=== PATIENT | male | born 1995 | race African-American/Black ===

== ENCOUNTER 2017-02-18 19:17 | Emergency (ER) | payer SELFPAY ==
[2017-02-18 19:18] VITALS: BP 119/69; PULSE 98; RESP 16; TEMP 99.5; O2SAT 96
[2017-02-18] MEDS ORDERED: CLINDAMYCIN PHOS 600 MG/4 ML VIAL IM ONE (20:15)
[2017-02-18] MEDS ORDERED: IBUPROFEN 800 MG TAB PO ONE (20:15)
[2017-02-18] MEDS ORDERED: ACETAMINOPHEN/CODEINE 300 MG/30 MG TAB PO ONE (20:15)
[2017-02-18] MEDS ORDERED: LIDOCAINE HCL 1% 50 ML VIAL INFIL ONE (20:15)
[2017-02-18] MEDS ORDERED: CLIN1CAP6 PO (20:27)
[2017-02-18] MEDS ORDERED: MAGICADU2 SWISH-SPIT (20:27)
[2017-02-18] MEDS ORDERED: IBUP800T23 PO (20:27)
[2017-02-18] MEDS ORDERED: TYLETAB34 PO (20:27)
--- NOTE | 2017-02-18 20:34 | PD ---
HPI Chief Complaint: Oral / Dental Pain or Problem Time Seen by Provider: 20:26 Travel History International Travel<30 days: No Contact w/Intl Traveler<30days: No Traveled to known affect area: No History of Present Illness HPI 21-year-old male presents for evaluation of dental pain. Symptoms started 1.5 weeks ago. He reports pain localized to the right mandibular first molar. He has had issues with this tooth for quite some time. He reports soft tissue swelling to the right lower gumline over the past few days. Denies drainage. Denies subjective fevers. He has had occasional chills. He is otherwise healthy 21-year-old male with no significant past medical history. He is attempting to get an appointment with a dentist to have the tooth extracted. He has no other complaints at this time. [facility] Past Medical History Medical History: Denies Significant Hx Past Surgical History Surgical History: No Previous Surgery Social History Alcohol Use: No Tobacco Use: No Substance Use: No Allergies-Medications (Allergen,Severity, Reaction): Coded Allergies: No Known Allergies (Verified Allergy, Unknown, 02/18/17) Reported Meds & Prescriptions Reported Meds & Active Scripts Active Magic Mouthwash Adult Liq (Multi-Ingredient Mouthwash/Gargle) 120 Ml Susp 10 Ml SWISH-SPIT ACHS Each 5mL contains: Nystatin 200,000units, Diphenhydramine 4.25mg, Viscous Lidocaine 10mg, Venegas syrup 0.8 mL Ibuprofen 800 Mg Tab 800 Mg PO Q6HR PRN Tylenol-Codeine #3 (Acetaminophen-Codeine) 300-30 mg Tab 1 Tab PO Q4H PRN Clindamycin (Clindamycin HCl) 300 Mg Cap 300 Mg PO TID 10 Days Review of Systems Except as stated in HPI: all other systems reviewed are Neg Physical Exam Narrative GENERAL: Well-developed well-nourished male in no acute distress. SKIN: Warm and dry. HEAD: Atraumatic. Normocephalic. EYES: Pupils equal and round. No scleral icterus. No injection or drainage. ENT: No nasal bleeding or discharge. Mucous membranes pink and moist. The right mandibular first molar is quite decayed. The surrounding gumline is tender and is somewhat fluctuant and pointing, approximately 1.5-2 cm in length. There is no sublingual edema. NECK: Trachea midline. No JVD. There is no lymphadenopathy or submandibular edema. CARDIOVASCULAR: Regular rate and rhythm. No murmur appreciated. RESPIRATORY: No accessory muscle use. Clear to auscultation. Breath sounds equal bilaterally. GASTROINTESTINAL: Abdomen soft, non-tender, nondistended. Hepatic and splenic margins not palpable. MUSCULOSKELETAL: No obvious deformities. No clubbing. No cyanosis. No edema. NEUROLOGICAL: Awake and alert. No obvious cranial nerve deficits. Motor grossly within normal limits. Normal speech. PSYCHIATRIC: Appropriate mood and affect; insight and judgment normal. Data Data Last Documented VS Vital Signs Date Time Temp Pulse Resp B/P (MAP) Pulse Ox O2 Delivery O2 Flow Rate FiO2 02/18/17 19:18 99.5 98 16 119/69 (86) 96 Room Air Orders Orders Lidocaine 1% Inj (50 Ml) (Xylocaine 1% I (02/18/17 20:15) Clindamycin Inj (Cleocin Inj) (02/18/17 20:15) Acetamin-Codeine 300-30 Mg (Tylenol-Code (02/18/17 20:15) Ibuprofen (Motrin) (02/18/17 20:15) MDM Medical Decision Making Medical Screen Exam Complete: Yes Emergency Medical Condition: Yes Medical Record Reviewed: Yes Differential Diagnosis Periodontal abscess, dental caries, pulpitis, pericoronitis Narrative Course 21-year-old male here with dental pain. Examination reveals focal dental decay to the right mandibular first molar. There are some surrounding gumline fluctuance that extends into the cheek itself. It is somewhat small in length and after consent was obtained a needle aspiration was performed to relieve some of the purulent drainage. The patient was given a dose of intramuscular clindamycin as well as oral Tylenol with codeine, ibuprofen. He'll be discharged with prescriptions for clindamycin as well as pain medication. He was given a coupon for the clindamycin. He is encouraged to follow-up with a dentist and return for any acutely new or worsening symptoms. Procedures Procedure Narrative Periodontal abscess needle aspiration: The skin on the right lower cheek wound was cleansed with Betadine. 1% lidocaine was used to anesthetize the area. The area was punctured with an 18-gauge needle. Purulent drainage was expressed. He tolerated procedure well. Diagnosis Primary Impression: Dental caries Additional Impression: Periodontal abscess Additional Instructions: Medication as prescribed. Do not drive or drink alcohol when taking Tylenol with Codeine. Follow up with a dentist for definitive therapy. Return for any acutely new or worsening symptoms. Med/Other Pt SpecificInfo: Prescription(s) given Scripts Ebgapfcd-Rywaaiwezsgtjdt-Ilbsiodzn Liq (Magic Mouthwash Adult Liq) 120 Ml Susp 10 ML SWISH-SPIT ACHS for Mouth sores, #120 ML 1 Refill Each 5mL contains: Nystatin 200,000units, Diphenhydramine 4.25mg, Viscous Lidocaine 10mg, Vengeas syrup 0.8 mL Prov: Enrrique Perdomo MD 02/18/17 Ibuprofen (Ibuprofen) 800 Mg Tab 800 MG PO Q6HR Y for PAIN, #40 TAB 0 Refills Prov: Enrrique Perdomo MD 02/18/17 Acetaminophen-Codeine (Tylenol-Codeine #3) 300-30 mg Tab 1 TAB PO Q4H Y for PAIN, #20 TAB 0 Refills Prov: Enrrique Perdomo MD 02/18/17 Clindamycin (Clindamycin) 300 Mg Cap 300 MG PO TID for Infection for 10 Days, CAP 0 Refills Prov: Enrrique Perdomo MD 02/18/17 Disposition: 01 DISCHARGE HOME Condition: Stable Vadim Leyva Feb 18, 2017 20:34
== END 2017-02-18 21:49 | disposition home or self-care (01) ==
LOC: NEPD 19:17
DX: K02.9 Dental caries, unspecified (principal); K04.7 Periapical abscess without sinus
CPT/HCPCS: 10160; 96372